=== PATIENT | female | born 1950 | race Caucasian/White ===

== ENCOUNTER → 2018-07-04 | Outpatient (CLI) | payer BC ==
--- NOTE | 2018-07-04 12:35 | PCVCIMAG ---
APPROVED REPORT Study performed: 07/04/2018 11:36:29 Exam: Stress Echocardiogram Indication: Hypertension, DYSPNEA, tachycardia Patient Location: Echo lab Stress Nurse: Gia Knight RN Status: routine Ht: 5 ft 6 in HR: 120 bpm BP: 138/84 mmHg Rhythm: Tachycardia Procedure The patient underwent an Exercise Stress Test using the Zhen Protocol. Blood pressure, heart rate, and EKG were monitored. An Echocardiogram was performed by commercial kitchen service technician in four stages in quad fashion. At peak stress, four selected images were obtained and placed side by side with resting images for comparison. Stress Test Details Stress Test: Exercise stress testing was performed using a Zhen protocol. HR Resting HR: 122 bpmMax Heart Rate (APMHR): 153 bpm Max HR Achieved: 176 bpmTarget HR (85% APMHR): 130 bpm % of APMHR: 115 Recovery HR: 126 bpm HR response to stress: Normal HR response to stress BP Resting BP: 138/84 mmHg Max BP: 186/84 mmHg Recovery BP: 156/78 mmHg BP response to stress: Normal blood pressure response to stress. ECG Resting ECG: Sinus Tachycardia Stress ECG: Sinus Tachycardia ST Change: Normal Maximum ST Deviation: 0 mm Arrhythmia: rare PVC Recovery ECG: Sinus Tachycardia Recovery ST Change: Normal Recovery ST Deviation: 0 mm Recovery Arrhythmia: None Clinical Reason for Termination: Maximal effort Stress Symptoms: Dyspnea Exercise duration: 6 min sec Highest Stage Achieved: Stage 2: 2.5 mph at 12% grade. Exercise capacity: 7.2 METs Overall Exercise Capacity for Age: Normal Scale: Sedentary Angina Score: None Stress ECG Conclusion ECG: Non-ischemic Clinical: Non-ischemic Fermin Treadmill Score is 6.0 which is Low risk. Pre-Stress Echo The resting Echocardiogram showed normal left ventricular contractility with an estimated Ejection Fraction of about >55%. Normal wall motion in all segments on baseline images. Post-Stress Echo The stress Echocardiogram showed normal left ventricular contractility with an estimated Ejection Fraction of about 65%. Normal augmentation of wall motion in all segments on post stress images. Clinical No clinical or ECG evidence for ischemia. Conclusion Clinical Response: Non-ischemic Exercise Capacity: Average Stress ECG Response: Non-ischemic Stress Echo Images: Non-ischemic The left ventricle is normal in size and wall thickness in both the rest and stress images. Normal stress echocardiogram with maximal exercise stress. Other Information Study Quality: Adequate <Conclusion> The left ventricle is normal in size and wall thickness in both the rest and stress images. Normal stress echocardiogram with maximal exercise stress.
== END | disposition home or self-care (01) ==
LOC: PCVCIMAG 11:11
PROVIDERS: ATTEND Family Medicine
DX: I10 Essential (primary) hypertension (principal); R06.09 Other forms of dyspnea; R00.0 Tachycardia, unspecified
CPT/HCPCS: 93325; 93351